=== PATIENT | female | born 1970 | race Caucasian/White ===

== ENCOUNTER 2023-03-05 18:46 | Emergency (ER) | payer OTHER, BC, SELFPAY ==
[2023-03-05 18:53] VITALS: BP 177/93; PULSE 68; RESP 20; TEMP 36.6; O2SAT 100
[2023-03-05 19:46] VITALS: BP 159/90; PULSE 81; RESP 14; TEMP 36.7; O2SAT 100
[2023-03-05 19:47] VITALS: O2SAT 100
[2023-03-05 20:52] VITALS: BP 135/82; PULSE 59; RESP 14; O2SAT 100
--- NOTE | 2023-03-05 21:35 | ED.RECABL ---
HPI - Recheck/Abnormal Lab/Rx General Chief Complaint: Recheck/Abnormal Lab/Rx Stated Complaint: HTN Time Seen by Provider: 03/05/23 19:59 Source: patient Mode of arrival: ambulatory Limitations: no limitations History of Present Illness HPI narrative: Patient is a 53-year-old female who presents to ED with report of elevated blood pressure. Patient reports she went to the dentist today for routine cleaning and they checked her blood pressure prior to the cleaning and noted to be elevated into the 150s systolic. They then checked it again a short time later and it was elevated to the 180s systolic. Patient then went home and checked her blood pressure several times at home, each time noting them to be elevated in the 160s to 170s systolic. Patient states she felt fine at the time of her blood pressures being checked in the dentist office, but did began feeling anxious and somewhat lightheaded at home with her pressures being continuously elevated. She then prompted here. She denies history of hypertension. She last saw her primary care doctor in July and her blood pressure was noted to be normal at that time. Denies any current dizziness or lightheadedness, headache, chest pain, difficulty breathing, vision changes, abdominal pain, cough, cold symptoms, recent illness. Related Data Allergies Allergy/AdvReac Type Severity Reaction Status Date / Time amoxicillin Allergy Mild Hives Verified 11/06/22 08:22 Penicillins Allergy Mild Hives Verified 11/06/22 08:22 Review of Systems Review of Systems: CONSTITUTIONAL: Denies fever, chills, or sweats. CARDIOVASCULAR: Denies chest pain. RESPIRATORY: Denies dyspnea. GASTROINTESTINAL: Denies abdominal pain, nausea, vomiting. NEUROLOGIC: See HPI. PSYCHIATRIC: See HPI. All systems reviewed & are unremarkable except as noted in HPI and below [facility] Past Medical History Medical History Hypothyroidism Family History Family History Mother Family history of Alzheimer's disease Social History Social History Smoking status: Never smoker Alcohol intake: current Lack of Transportation: No Lack of Food: Never True Current Housing: I Have Housing Concerned About Future Housing: No Difficulty Paying Gas/Electric Bills: No Difficulty Paying for Meds: No Currently Unemployed: No Education: Bachelor's Degree Difficulty w/ Childcare or Family Care: No Exam Narrative: GENERAL: Well appearing, well-nourished, non-toxic, in no acute distress. HEAD: Normocephalic, atraumatic. NECK: Supple. No adenopathy, no masses. RESPIRATORY: Airway patent, respirations nonlabored. Clear to auscultation bilaterally, no rales, rhonchi, wheezing. CARDIOVASCULAR: Regular rate and rhythm without murmurs, rubs, or gallops. Radial pulses 2+ and equal bilaterally. ABDOMINAL: Soft, nontender, nondistended, no hepatosplenomegaly. Normoactive BS. MUSCULOSKELETAL: Moves all extremities. Strength/ROM intact without gross deformities. No edema. No calf tenderness. SKIN: Warm, dry, normal color. No rashes. NEURO: A&O X3. Speech clear. Cranial nerves II-XII grossly intact. Steady gait. No ataxic movements. PSYCHIATRIC: Appropriate mood and affect. Normal interaction. Course Vital Signs Vital signs: Vital Signs Temperature 97.8 F 03/05/23 18:53 Pulse Rate 68 03/05/23 18:53 Respiratory Rate 20 03/05/23 18:53 Blood Pressure 177/93 H 03/05/23 18:53 Pulse Oximetry 100 03/05/23 18:53 Oxygen Delivery Room Air 03/05/23 18:53 Temperature 98.1 F 03/05/23 19:46 Pulse Rate 59 L 03/05/23 21:52 Respiratory Rate 16 03/05/23 21:52 Blood Pressure 119/81 03/05/23 21:52 Pulse Oximetry 99 03/05/23 21:52 Oxygen Delivery Room Air 03/05/23 19:47 MDM - Recheck/Abnormal Lab/Rx MDM
[2023-03-05 21:52] VITALS: BP 119/81; PULSE 59; RESP 16; O2SAT 99
== END 2023-03-05 21:53 | disposition home or self-care (01) ==
PROVIDERS: Emergency Provider Physician Assistant; PCP Internal Medicine
DX: R03.0 Elevated blood-pressure reading, without diagnosis of hypertension (principal); E03.9 Hypothyroidism, unspecified
CPT/HCPCS: 99281

== ENCOUNTER 2024-11-19 11:15 | Outpatient (CLI) | payer OTHER, SELFPAY ==
--- NOTE | ~2024-11-19 | US_ITS ---
Limited abdominal ultrasound CLINICAL HISTORY: Umbilical mass TECHNIQUE: Real-time targeted sonographic imaging performed of the umbilical area. FINDINGS: No solid or cystic lesion identified. No hernia identified. No sonographic abnormality seen in the region scanned. IMPRESSION: No abnormality seen sonographically the area of clinical concern at the umbilical region. Reviewed, dictated and finalized at [facility]. IMPRESSION: No abnormality seen sonographically the area of clinical concern at the umbilic al region.
== END 2024-11-19 11:16 | disposition home or self-care (01) ==
PROVIDERS: PCP Nurse Practitioner; Visit Provider Nurse Practitioner
DX: R19.09 Other intra-abdominal and pelvic swelling, mass and lump (principal)
CPT/HCPCS: 76705

== ENCOUNTER 2025-06-20 14:07 | Emergency (ER) | payer OTHER, SELFPAY ==
[2025-06-20 14:07] VITALS: BP 144/73; PULSE 75; RESP 16; TEMP 36.3; O2SAT 100
--- NOTE | 2025-06-20 14:10 | ED_ITS ---
HPI - Extremity Problem General Chief complaint: Dizziness Stated complaint: Rt hand shaky/numb Time Seen by Provider: 06/20/25 14:10 Source: patient Mode of arrival: ambulatory Limitations: no limitations History of Present Illness HPI Narrative: Mima is a 55 year old female patient presenting to the clinic today with c/o dizziness, right hand shaking, and numbness. She reports symptoms just started prior to arrival. Has not taken any medications for her symptoms. No injury to her right hand. No history of diabetes. History of anxiety, hypertension, high cholesterol, and hypothyroid. Has not had her thyroid levels checked in over 1 year. Denies headache or any visual changes. Related Data Allergies Allergy/AdvReac Type Severity Reaction Status Date / Time amoxicillin Allergy Mild Hives Verified 11/16/24 10:57 Penicillins Allergy Mild Hives Verified 11/16/24 10:57 Review of Systems 2 Review of Systems: Pertinent positives per HPI. Patient denies any fever, chills, rash, headache, visual changes, cough, runny nose, sore throat, shortness of breath, chest pain, palpitations, nausea, vomiting, diarrhea, constipation, abdominal pain, or any urinary issues. [facility] Past Medical History Medical History Hypothyroidism Family History Family History Mother Family history of Alzheimer's disease Hypertension Father Hypertension Sibling Hypertension Social History Social History Smoking status: Never smoker Alcohol intake: current Lack of Transportation: No Lack of Food: Never True Current Housing: I Have Housing Concerned About Future Housing: No Difficulty Paying Gas/Electric Bills: No Difficulty Paying for Meds: No Currently Unemployed: No Education: Bachelor's Degree Difficulty w/ Childcare or Family Care: No Comments At the time of my signature, I reviewed and agree with the nursing past medical, surgical, social, and family history. There is no relevant family history pertinent to the patient complaint. Exam Narrative: General: Well-developed, well nourished, in no apparent distress Head: Normocephalic, atraumatic Eyes: Pupils equally round and reactive to light bilaterally, EOM intact, sclera and conjunctive clear, no discharge, lids normal Ears: TMs intact and clear, ear canals clear, no drainage, grossly hearing normal. Nose: Nares patent, no discharge, no inflammation, no sinus tenderness. Mouth: Oropharynx without lesions or masses, good dentition, MMM. Tongue midline, even rise and fall of uvula Neck: Supple, trachea midline, no enlargement of anterior or posterior cervical nodes, no thyroid masses or goiter palpable. Cardio: Regular rate and rhythm, s1 and s2 normal, no murmur appreciated. Resp: Clear to auscultation bilaterally anteriorly and posteriorly, no rhonchi, rales, wheezing or rubs Musculoskeletal: No deformity, non-tender to palpation, grossly normal range of motion, muscle strength strong and equal, peripheral pulse strong, no edema, no cyanosis, normal gait and station Neuro: Alert and oriented x4 with normal speech, no focal deficits, cranial nerves I through XII intact, muscle strength 5 out of 5, numbness to the right hand, negative Romberg test Course Course Emergency Course: Portions of this record may have been created with voice recognition software. Level of Care: Express Care Visit Vital Signs Vital signs: Vital signs reviewed Transfer Transfered to: [place] Transportation: Other (private car) Transfer rationale: Dizziness, right hand numbness/shaking- higher level of care. Accepting physician: Dr. Crisostomo Transfer comments: private car MDM - Extremity (Nontraumatic) MDM Narrative Medical decision making narrative: At the time of visit patient is resting comfortably on the exam table. Patient appears to be nontoxic. C/o right hand shaking/numbness. She reports symptoms just started prior to arrival. Has not taken any medications for her symptoms. No injury to her right hand. No history of diabetes. History of anxiety, hypertension, high cholesterol, and hypothyroid. Bedside glucose was ordered. On exam patient has normal neuro exam other than right hand numbness, both hands are equal in temperature, practical nurse clinical coordinator strength were equal bilaterally, negative Romberg testing, bilateral TMs intact and clear, no nasal drainage, nares are patent, oral pharynx normal, even rise and fall the uvula-midline tongue, no facial droop, heart rates regular rate and rhythm, lung sounds are clear. Alert and oriented x4. Vital signs are stable. Labs: Blood sugar was 102. Plan: Patient reporting dizziness, right hand shaking, and numbness. Neuro exam normal other than numbness in the right hand, Recommend transfer to the ER for further evaluation. Patient agrees to transfer would like to go to [facility]. Contacted Dr. Crisostomo and report was given for continuity of care. Dr. Crisostomo accepts patient for transfer. Patient to go directly to the emergency room- may drive. Differential Diagnosis Differential diagnosis: Likely deep venous thrombosis of upper extremity and other (Carpal tunnel syndrome, hypoglycemia, nerve injury/inflammation, cervical radiculopathy, anxiety) Discharge Plan Discharge Clinical Impression: Paresthesias in right hand, Dizziness, Tremor of right hand Patient Disposition: Acute Care Hospital Condition: Stable Patient Language: Korean Prescriptions: No Action alprazolam [Xanax] 0.25 mg tablet 0.25 mg PO DAILY PRN (Reason: anxiety) Qty: 10 0RF lisinopril 5 mg tablet 5 mg PO DAILY Qty: 90 1RF atorvastatin 10 mg tablet 10 mg PO QHS Qty: 90 1RF levothyroxine 50 mcg tablet 50 mcg PO DAILY Qty: 90 0RF Rx Instructions: LAST REFILL UNTIL SEEN Follow-up/Referrals: Gregory Phillips DO [Primary Care Provider, Internal Medicine] Time of Disposition: 14:40 Quality NIHSS Nursing Documentation ED NIHSS nursing documentation: reviewed/agree
== END 2025-06-20 14:35 | disposition short-term general hospital (02) ==
PROVIDERS: Emergency Provider Nurse Practitioner Family; PCP Internal Medicine
DX: R20.2 Paresthesia of skin (principal); R42 Dizziness and giddiness; R25.1 Tremor, unspecified; E03.9 Hypothyroidism, unspecified
CPT/HCPCS: 82948; 99213; G0463

== ENCOUNTER 2025-06-20 14:52 | Observation (INO) | payer OTHER, SELFPAY ==
[2025-06-20] VITALS (10 sets, daily range): BP systolic 116–139; BP diastolic 71–88; PULSE 60–82; RESP 12–20; TEMP 36.2–36.9; O2SAT 98–100; BMI 20.9
--- NOTE | ~2025-06-20 | CT_ITS ---
EXAMINATION: CTA brain carotid, 06/20/2025 15:00 HOOF TRIMMER HISTORY: right sided numness COMPARISON: No comparisons available. TECHNIQUE: CTA scan with 3D Reconstructions of the brain and neck was performed with contrast Isovue 300, 92cc injected IV. One or more of the following dose reduction techniques were used: automated exposure control, adjustment of the mA and/or kV according to patient size, use of iterative reconstruction technique. Unless otherwise stated, incidental findings do not require dedicated follow up imaging FINDINGS: CTA brain: Visualized brain parenchyma, soft tissues and osseous structures are unremarkable. The posterior cerebral arteries are fed by the knik of [place] appear unremarkable. Basilar artery unremarkable. Right petrous and cavernous ICA segments unremarkable. Right M1, M2 segments and branches unremarkable. Right A1 is diminutive. Right A2 segment unremarkable Left petrous and cavernous ICA segments unremarkable. Left M1, M2 segments and branches unremarkable. Left A1 and A2 segments unremarkable. CTA NECK: The soft tissues are unremarkable. There is no thickening of the prevertebral space or asymmetry of the airway. The parotid and submandibular glands unremarkable. No gross thyroid nodules. No jugulodigastric lymphadenopathy. The lung apices demonstrate chronic changes. There are no sclerotic or lytic lesions identified. No significant sinusitis. The cervical segments of the vertebral arteries appear unremarkable. The right vertebral artery is dominant. Right CCA unremarkable. Right ICA unremarkable Left CCA unremarkable. Left ICA unremarkable. IMPRESSION: No critical stenosis, aneurysm or occlusion identified Reviewed, dictated and finalized at location P. TRIMMER
--- NOTE | ~2025-06-20 | CT_ITS ---
EXAMINATION: CT brain wo walter, 06/20/2025 14:50 FLOOR FINISHER HELPER HISTORY: right side numness COMPARISON: No comparisons available. Technique: Axial images obtained of the brain without contrast. One or more of the following dose reduction techniques were used: automated exposure control, adjustment of the mA and/or kV according to patient size, use of iterative reconstruction technique. Findings: No acute infarct or parenchymal hemorrhage. No abnormal mass or mass effect. No midline shift. No extra-axial fluid collections. No hydrocephalus. Mastoid air cells unremarkable. Sinuses and orbits unremarkable. No acute fracture. No significant facial or scalp soft tissue swelling evident. No radiopaque foreign body is seen. Impression: 1.No acute intracranial abnormality. Reviewed, dictated and finalized at location P. R FINISHER HELPER Impression: 1.No acute intracranial abnormality.
--- NOTE | ~2025-06-20 | MR_ITS ---
EXAM/PROCEDURE: MR brain/brain stem wo/w con HISTORY: CVA/ TIA workup COMPARISON: June [id number] TECHNIQUE: Pre and postcontrast enhanced multiplanar MRI of the brain Contrast: 12 mL MultiHance FINDINGS: No restricted diffusion or acute ischemic event. No mass mass effect or hemorrhage. Mild chronic microvascular ischemic appearing white matter changes. No abnormal enhancing lesions or post enhancement pathology noncontrast sequences. Periorbital paranasal calvarial structures unremarkable. Basilar flow voids patent at the skull base. Hippocampal regions appear symmetric. IMPRESSION: No acute findings. Chronic microvascular ischemic appearing white matter changes. No lesions or masses seen. Reviewed, dictated and finalized at location A. OMIC PATHOLOGIST IMPRESSION: No acute findings. Chronic microvascular ischemic appearing white matter change s. No lesions or masses seen.
--- OUTSIDE RECORDS SUMMARY | 2025-06-20 14:55 | XMS_ITS | Clinical Summary ---
Author Organization [facility] Address [address] [place] [address] Phone Care Team Providers Care Provisioning Analyst Name Role Phone Gregory Phillips DO Primary Care Provider Allergies Active Allergy Reactions Criticality Noted Date Comments Amoxicillin Hives High 01/14/2020 Medications levothyroxine 50 mcg tablet Take 50 mcg by mouth daily transfer worker. Active Active Problems No known active problems Encounters Date Type Department Care Team Description 06/02/2025 External Device Data [facility] ABSTRACTION Provider, Abstract 06/02/2025 External Device Data [facility] ABSTRACTION Provider, Abstract from Last 3 Months Family History Medical History Relation Name Comments Heart Disease Brother 1 Heart Disease Brother 2 Reece High Cholesterol Father Costa Breast Cancer Maternal Aunt Heart Disease Maternal Grandfather Elvin Ovarian Cancer Maternal Grandmother Grandmother High Cholesterol Mother Mother Hypertension Mother Mother Diabetes Paternal Grandfather Elvin Relation Name Status Comments Brother 1 Brother 2 Reece Alive Father Costa Alive Maternal Aunt Maternal Grandfather Elvin Maternal Grandmother Grandmother Alive Mother Mother Alive Paternal Grandfather Elvin Social History Tobacco Use Types Packs/Day Years Used Date Smoking Tobacco: Never Smokeless Tobacco: Never Tobacco Cessation:Counseling Given: Not Answered Alcohol Use Standard Drinks/Week Comments Yes 4 (1 standard drink = 0.6 oz pur e alcohol) socially Comments No Sex and Gender Information Value Date Recorded Sex Assigned at Not on file Legal 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 [address] [place] [address] Josh Torres MD [address] [facility] [address] [place] [address] Health Maintenance Due Date Last Done Comments DTAP/TDAP/TD VACCINES (1 - Tdap) 02/09/1987 HEPATITIS B VACCINES (1 of 3 - 19+ 3-dose series) 02/09/1987 COLORECTAL SCREENING 02/09/2013 Colorectal Cancer Screening 02/09/2013 FIT-DNA Q 3 years 02/09/2013 FIT/FOBT Q 1 year 02/09/2013 Flex Sig/CT Colonography Q 5 years 02/09/2013 ZOSTER VACCINE (1 of 2) 02/09/2018 INFLUENZA VACCINE (#1) 2025 BREAST CANCER SCREENING 03/04/2026 03/04/20 25, 01/31/2023, 01/15/2022, Additional history exists PAP SMEAR 03/02/2028 03/02/2025, 07, 01/14/2020 CERVICAL CANCER SCREENING 03/02/2030 HPV/Cotest (21-29) 03/02/2030 03/02/2025, 0 02/21/2021, 01/14/2020 HPV/Cotest (30-65) 03/02/2030 03/02/2025, 0 02/21/2021, 01/14/2020 Procedures Procedure Name Priority Date/Time Associated Diagnosis Comments MAMMO 3D PAIGE SCREEN BILAT W OR WO CAD Routine 03/04/2025 3:27 PM CDT Breast cancer screening by mammogram CERV/VAG CYTO SCREEN PAP RLFX HPV Routine 03/02/2025 10:29 AM CDT Screening for cervical cancer from Last 3 Months or Most Recently Relevant to Health Maintenance Results * MAMMO 3D PAIGE SCREEN BILAT W OR WO CAD (03/04/2025 3:27 PM CDT) Anatomical Region Laterality Modality Breast Bilateral Mammography 03/04/2025 3:27 PM CDT Addenda Addendum by Elvin Doherty MD on 03/11/2025 7:06 AM CDT Comparison is made to outside studies from 2022, 2021 and 2020.. No new suspicious mass, microcalcifications or architectural distortion in either breast. BI-RADS 1: Negative Routine mammographic follow-up Impressions 03/04/2025 4:05 PM CDT IMPRESSION: [facility] Radiology will request the patient's previous outside studies in order to assess for stability. An addendum will be provided after reviewing the outside exams. DICTATION LOCATION: [facility] Narrative 03/04/2025 4:05 PM CDT BILATERAL FULL-FIELD DIGITAL SCREENING MAMMOGRAM WITH CAD WITH TOMOGRAPHY DATE: 03/04/2025 3:27 PM HISTORY: Annual screening. TECHNIQUE: Low-dose full-field digital breast tomosynthesis examination was performed with 2D and 3D acquisitions. Examination is read in conjunction with computer aided detection. COMPARISON: None. BREAST COMPOSITION: The breasts are heterogeneously dense, which may obscure small masses. FINDINGS: Previous exams are currently unavailable. The patient's outside studies will be requested in order to assess for stability. OVERALL FINAL ASSESSMENT: BI-RADS CATEGORY 0: Incomplete, obtaining previous images not available at the time of reading. us Josh Torres MD MAMMO ORDERABLES Edite d Result - Final * CERV/VAG CYTO SCREEN PAP RLFX HPV (03/02/2025 10:29 AM CDT) CLINICAL INFORMATION Domonique Mcleod Comment:None given LAST MENSTRUAL PERIOD Domonique Mcleod Comment:NONE GIVEN PREV PAP: [facility]Hanane Mcleod Comment:NONE GIVEN PREV BX: [facility]S zaheer Harsha Comment:NONE GIVEN SOURCE Domonique Mcleod Comment:ENDOCERVIX ADEQUACY: Domonique One DiaryDuong Mcleod Comment:SATISFACTORY FOR SERGIO LUATION PAP INTERP Domonique YinDuong Mcleod Comment: Cytology Results: Negative for intraepithelial lesion or malignancy. Atrophic pattern; predominantly parabasal cells COMMENT (PAP TEST) Q uest AnnamariaDuong Mcleod Comment: This Pap test has been evaluated with the ThinPrep(R) Imaging System. SENIOR ASSOCIATE: Oli Mcleod Comment: MESHA BOWDEN(ASCP) CT Screening Location: [place] [address] Administration EM[place] [address] CLIA: [id number] Slide preparation performed at: [facility], [address] [place] [address], [address] CLIA: [id number] EXPLANATORY NOTE Que st Nimisha Mcleod Comment: EXPLANATORY NOTE: The Pap is a screening test for cervical cancer. It is not a diagnostic test and is subject to false negative and false positive results. It is most reliable when a satisfactory sample, regularly obtained, is submitted with relevant clinical findings and history, and when the Pap result is evaluated along with historic and current clinical information. Test Performed at: [facility] [place] [address] [address] EM[place] [id number] Kaye Hoskins Genital SWAB OF ENDOCERVIX / Unknown 03/02/2025 10:29 AM CDT 03/03/2025 7:06 PM CDT Josh Torres MD PATHOLOGY/CYTOLOGY ORD ERABLES Final Result [facility] [phone] [place] [address] Administration EM[place] [phone] from Last 3 Months or Most Recently Relevant to Health Maintenance Insurance [facility] [id number] Care Teams Provisioning Analyst Relationship Specialty Start Date End Date Gregory Phillips DO [address] [facility] [address] [place] [address] PCP - General Internal Medicine 01/12/20
--- OUTSIDE RECORDS SUMMARY | 2025-06-20 14:55 | XMS_ITS | Encounter Summary ---
Author Organization [facility] Address 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 Gender Identity Not on file Sexual Orientation Not on file documented as of this encounter Plan of Treatment Upcoming Encounters Date Type Department Care Team (Late Contact Info) Description 08/23/2025 9:00 AM INDUSTRIAL GREEN SYSTEMS DESIGNER Appointment [facility] [address] [place] [address] Josh Torres MD [address] [address] documented as of this encounter Visit Diagnoses Diagnosis Abnormality in heart rate/rhythm, delivered, with or without mention of antepartum condition- Primary documented in this encounter Care Teams Trust Vault Custodian Relationship Specialty Start Date End Date Gregory Phillips DO [address] [facility] [address] [place] [address] PCP - General Internal Medicine 01/12/20 documented as of this encounter
--- OUTSIDE RECORDS SUMMARY | 2025-06-20 14:55 | XMS_ITS | Patient Health Record ---
Author Organization [facility] ([address]) Address [address] [place] [address] Care Team Providers Care Junior Legal Secretary Name Role Phone Gregory Phillips Primary Care Provider Unavailab Mariia Santos Unavailable [phone] Allergies Allergen (clinical drug ingredient) Drug/Non Drug Allergy documented on EMR Reaction Allergy Type Onset Date Status SULFATE (uncoded) unknown reaction Allergy Active amoxicillin Amoxicillin rash Drug Allergy Act john Penicillin Rash Drug Allergy Active Reason For Referral No Information Medications Medication SIG (Take, Route, Frequency, Duration) Notes Start Date End Date Status Synthroid 50 MCG 1 tab(s) orally once a day; Duration: 30 day(s) Active SYNTHROID 50 mcg (0.05 mg) 1 tab(s) oral ly once a day; Duration: 30 day(s) Active Immunizations Vaccine Route Administration Date Status Comme nts Hepatitis A Unknown 07/13/1999 Administered Portal Info rmation NOC Tdap Unknown 04/22/2012 Administered Portal Infor mation Influenza Unknown 02/18/2019 Refused Social History Tobacco Use: Social History Observation Description Date Details (start date - stop date) Never Smoker NA - NA Smoking Smart Form: Question Answer Notes Are you a: never smoker Problems Problem Type SNOMED Code ICD Code Onset Dates Problem Status W/U Status Risk Notes Problem Chronic rhinitis (32176005) Chronic rhinitis (J31.0) Active confirmed Problem Allergy to penicillin (20240944) Allergy status to penicillin (Z88.0) Active confirmed Problem Allergy to sulfonamides (57736011) Allergy status to sulfonamides status (Z88.2) Active confirmed Plan Of Treatment No Information Insurance Providers Payer Name Payer Address Payer Phone Subscriber Number Group Number Insured Name Patient Relationship to Insured Coverage Start Date Coverage End Date [facility] [address] [place] [address] [id number] Chuck Morley Spouse - patient is the spouse of the insured Medical (General) History Medical History History ICD Code Allergy status to penicillin Z88.0 Hypothyroidism, unspecified E03.9 Surgical History Surgery Date(Month/Year) Broken nose 10/23/1996
--- OUTSIDE RECORDS SUMMARY | 2025-06-20 14:55 | XMS_ITS ---
Author Organization Unknown ENCOUNTERS Encounter Performer Location Date Diagnosis Diagnosis Status Pre Admit [place] [address] [place] [address] [phone] Emergency [facility] [address] [place] [address] [phone] [place] Pre Admit [place] [address] [place] [address] [phone] *Note: Encounters from your own facility or health system may be excluded. Allergies, Adverse Reactions, Alerts Allergen Type Severity Identification Date Penicillins drug allergy 2 20221106 amoxicillin drug allergy 2 20221106 Medications Name Date Quantity Days Supplied [facility] Number
--- NOTE | 2025-06-20 14:58 | ECG_ITS ---
Test Date: 2025-06-20 15:32:37 Measurements Intervals [place] Rate: 68 P: 90 IA: 164 QRS: 67 QRSD: 86 T: 73 QT: 402 QTc: 429 Interpretive Statements SINUS RHYTHM No previous ECG available for comparison Electronically Signed On 06-21-2025 00:09:47 SENIOR UNDERWRITING ASSISTANT by Dewayne Álvarez D.O
[2025-06-20 15:20] LABS: Estimated Glomerular Filt Rate > 60
[2025-06-20 15:46] LABS: Hematocrit 41.2 % (37.0-47.0); Hemoglobin 13.8 g/dL (12.0-15.0); Immature Granulocyte Percent A 0.4 % (0-0.5); Lymphocytes Absolute Auto 1.38 K/mm3 (0.9-3.2); Mean Corpuscular HGB Conc 33.5 g/dl (32-36); Mean Corpuscular Hemoglobin 31.4 pg (26-34); Mean Corpuscular Volume 93.8 fl (80-100); Nucleated Red Blood Cells Absolute Auto 0.000 K/mm3 (0.0-0.012); Nucleated Red Blood Cells Perc 0.0 % (0.0-0.2); Platelet Count Result 244 k/mm3 (150-375); Red Blood Count 4.39 M/mm3 (4.2-5.4); White Blood Count 4.8 K/mm3 (4.5-10.0)
[2025-06-20 16:03] LABS: Alanine Aminotransferase 31 U/L (6-35); Albumin Level 4.6 g/dL (3.5-5.1); Alkaline Phosphatase 80 U/L (38-126); Anion Gap 9 mmol/L (4-12); Aspartate Amino Transferase 37 U/L (14-36); Bilirubin,Total 0.6 mg/dL (0.2-1.3); Blood Urea Nitrogen 23 mg/dL (7-17); Calcium 9.1 mg/dL (8.4-10.2); Carbon Dioxide 25 mmol/L (22-30); Chloride 102 mmol/L (98-107); Estimated CRCL calculation 74 ml/min; Estimated Glomerular Filt Rate > 60; Glucose 119 mg/dL (65-110); Potassium 3.6 mmol/L (3.4-5.0); Sodium 136 mmol/L (137-145); Total Protein 7.5 g/dL (6.3-8.2)
[2025-06-20 16:13] LABS: Troponin I < 0.012 ng/mL (0.000-0.034)
--- NOTE | 2025-06-20 16:17 | ED.NEUROSD ---
HPI - Neuro Symptoms/Deficit General Chief Complaint: Neuro Symptoms/Deficit Stated Complaint: right hand numb and shaky x 1 hr Time Seen by Provider: 06/20/25 14:57 Source: patient Mode of arrival: ambulatory Limitations: no limitations History of Present Illness HPI Narrative: 55 yr old with a history of hyperlipidemia, anxiety disorder here the right-sided numbness about 1 hour ago associated with shakes on the right sign. Denies any headache or chest pain or shortness of breath. Patient since this is not anxiety Onset (ago): hour(s) (1) Associated symptoms: denies other symptoms Related Data Allergies Allergy/AdvReac Type Severity Reaction Status Date / Time amoxicillin Allergy Mild Hives Verified 06/20/25 14:56 Penicillins Allergy Mild Hives Verified 06/20/25 14:56 Sulfa (Sulfonamide Allergy Unknown Unknown Verified 06/20/25 14:56 Antibiotics) Review of Systems Review of Systems: All systems reviewed & are unremarkable except as noted in HPI and below Constitutional: Constitutional: Reports no additional constitutional complaints Eyes: Eyes: Reports no additional eye complaints ENT: Reports system reviewed and no additional complaints, except as documented Cardiovascular: Cardiovascular: Reports no additional cardiovascular complaints Respiratory: Respiratory: Reports no additional respiratory complaints Gastrointestinal: Gastrointestinal: Reports no additional gastrointestinal complaints Genitourinary: Genitourinary: Reports no additional female genitourinary complaints Musculoskeletal: Musculoskeletal: Reports no additional musculoskeletal complaints Neurologic: Reports as per HPI PMFSH Past Medical History Medical History Hypothyroidism Family History Family History Mother Family history of Alzheimer's disease Hypertension Father Hypertension Sibling Hypertension Social History Social History Smoking status: Never smoker Alcohol intake: current Lack of Transportation: No Lack of Food: Never True Current Housing: I Have Housing Concerned About Future Housing: No Difficulty Paying Gas/Electric Bills: No Difficulty Paying for Meds: No Currently Unemployed: No Education: Bachelor's Degree Difficulty w/ Childcare or Family Care: No Exam Narrative: GENERAL: Well-appearing, well-nourished, and in no acute distress. HEAD: Normocephalic, atraumatic. EYES: PERRLA and EOMI. ENT: Nares clear, no rhinorrhea or epistaxis. Mucous membranes moist. NECK: Supple. CHEST: Clear to auscultation. No respiratory distress. HEART: Regular rate and rhythm. No murmur heard. Normal peripheral pulses. ABDOMEN: Soft, nontender, nondistended, normal active bowel sounds. EXTREMITIES: Normal range of motion. No edema. SKIN: Warm, dry, no rash. NEURO: No focal deficits. Alert and oriented x3. she a tremor on the right side. PSYCH: Normal mood and affect. Course Course Emergency Course: Pt is feeling much better , her symptoms now resolved , informed her about the lab and CT findings. Discussed with Dr. Diaz recommends admit and EEG in the morning. Vital Signs Vital signs: Vital Signs Pulse Rate 75 06/20/25 14:54 Respiratory Rate 12 06/20/25 14:54 Blood Pressure 138/75 06/20/25 14:54 Pulse Oximetry 100 06/20/25 14:54 Pulse Rate 73 06/20/25 15:53 Respiratory Rate 20 06/20/25 15:53 Blood Pressure 116/74 06/20/25 15:53 Pulse Oximetry 100 06/20/25 15:53 Oxygen Delivery Room Air 06/20/25 15:16 MDM - Neuro Symptoms/Deficit Differential Diagnosis Differential diagnosis: Likely transient cerebral ischemia and other (anxiety) Medical Records Attestation: I reviewed the patient's medical records. Lab Data Attestation: I reviewed the patient's lab results. 06/20/25 15:41 06/20/25 16:08 Labs: Lab Results 06/20/25 06/20/25 06/20/25 Range/Units 14:56 15:41 16:08 WBC 4.8 (4.5-10.0) K/mm3 RBC 4.39 (4.2-5.4) M/mm3 Hgb 13.8 (12.0-15.0) g/dL Hct 41.2 (37.0-47.0) % MCV 93.8 (80-100) fl MCH 31.4 (26-34) pg MCHC 33.5 (32-36) g/dl RDW 11.7 (11.5-14.5) % Plt Count 244 (150-375) k/mm3 MPV 9.6 (7.4-10.4) fl Immature Gran % (Auto) 0.4 (0-0.5) % Neut % (Auto) 61.9 (45.5-73.1) % Lymph % (Auto) 28.6 (18.3-44.2) % [place] % (Auto) 7.3 (2.6-8.5) % Eos % (Auto) 1.2 (0-4.4) % Baso % (Auto) 0.6 (0.2-1.2) % Lymph # (Auto) 1.38 (0.9-3.2) K/mm3 [place] # (Auto) 0.4 (0.1-0.6) K/mm3 Eos # (Auto) 0.1 (0-0.3) K/mm3 Baso # (Auto) 0.0 (0.0-0.1) K/mm3 Abs Immat Gran (auto) 0.02 (0.00-0.031) K/mm3 Absolute Neuts (auto) 3.0 (1.3-6.7) K/mm3 Absolute Nucleated RBC 0.000 (0.0-0.012) K/mm3 Nucleated RBC % 0.0 (0.0-0.2) % Sodium 136 L (137-145) mmol/L Potassium 3.6 (3.4-5.0) mmol/L Chloride 102 (98-107) mmol/L Carbon Dioxide 25 (22-30) mmol/L Anion Gap 9 (4-12) mmol/L BUN 23 H (7-17) mg/dL Creatinine 0.69 L 0.80 (0.7-1.0) mg/dL Estim Creat Clear Calc 74 Not Reportable ml/min Estimated GFR > 60 > 60 (59 - ) Glucose 119 H (65-110) mg/dL POC Capillary Glucose 109 H (65-105) mg/dl Calcium 9.1 (8.4-10.2) mg/dL Total Bilirubin 0.6 (0.2-1.3) mg/dL AST 37 H (14-36) U/L ALT 31 (6-35) U/L Alkaline Phosphatase 80 (38-126) U/L Troponin I < 0.012 (0.000-0.034) ng/mL Total Protein 7.5 (6.3-8.2) g/dL Albumin 4.6 (3.5-5.1) g/dL Imaging Data Radiologist's impression: ITS Impressions Head CT 06/20/25 15:03 Impression: 1.No acute intracranial abnormality. Head/Neck CTA 06/20/25 15:19 IMPRESSION: No critical stenosis, aneurysm or occlusion identified ECG Data EKG #1: ECG completion date: 06/20/25 ECG completion time: 15:32 EKG Interpretation: normal rate (68), sinus rhythm, no ectopy, no ST changes, normal QRS, normal QT and NL axis Discharge Plan Discharge Clinical Impression: TIA (transient ischemic attack) Patient Disposition: Still a Patient Condition: Stable Patient Language: Togolese Prescriptions: No Action alprazolam [Xanax] 0.25 mg tablet 0.25 mg PO DAILY PRN (Reason: anxiety) Qty: 10 0RF lisinopril 5 mg tablet 5 mg PO DAILY Qty: 90 1RF atorvastatin 10 mg tablet 10 mg PO QHS Qty: 90 1RF levothyroxine 50 mcg tablet 50 mcg PO DAILY Qty: 90 0RF Rx Instructions: LAST REFILL UNTIL SEEN Follow-up/Referrals: Gregory Phillips DO [Primary Care Provider, Internal Medicine] Time of Disposition: 16:17 Quality Stroke Date of last known normal: 06/20/25 Time of last known normal: 14:00 Stroke Scale Stroke Scale 1: Stroke scale date:: 06/20/25 Stroke scale time:: 15:16 1a Level of consciousness: alert-0 1b Level of consciousness questions: answers both correctly-0 1c Level of consciousness commands: obeys both correctly-0 2 Best gaze: normal-0 3 Visual: no visual loss-0 4 Facial palsy: normal-0 5a Motor: left arm: no drift-0 5b Motor: right arm: no drift-0 6a Motor: left leg: no drift-0 6b Motor: right leg: no drift-0 7 Limb ataxia: absent-0 8 Sensory: normal-0 9 Best language: no aphasia-0 10 Dysarthria: normal-0 11 Extinction and inattention: no abnormality-0 Level:: 0
[2025-06-20] MEDS: LORazepam (*CRX) 1 MG TABLET PO (16:38)
[2025-06-20 17:15] LABS: Anion Gap 7 mmol/L (4-12); Blood Urea Nitrogen 23 mg/dL (7-17); Calcium 9.1 mg/dL (8.4-10.2); Carbon Dioxide 25 mmol/L (22-30); Chloride 101 mmol/L (98-107); Estimated CRCL calculation 77 ml/min; Estimated Glomerular Filt Rate > 60; Glucose 103 mg/dL (65-110); Potassium 4.5 mmol/L (3.4-5.0); Sodium 133 mmol/L (137-145)
--- NOTE | 2025-06-20 17:56 | WPCEDHO ---
ED Hand Off Checklist All vitals saved:y IV Site documented:y All med administrations documented:y Triage Note Triage Note Pt presents to ED c/o tingling 06/20/25 15:16 and numbness and shakiness in R side of body and lightheadedness. Pt stated these sx started about an hour ago. Pt has no stroke or migraine hx. Pt denies n/v, fevers, or chills. Allergies amoxicillin Allergy (Mild, Verified 06/20/25 14:56) Hives Penicillins Allergy (Mild, Verified 06/20/25 14:56) Hives Sulfa (Sulfonamide Antibiotics) Allergy (Unknown, Verified 06/20/25 14:56) Unknown Family History (Last Reviewed 06/20/25 @ 16:26 by Michael Wellington MD) Mother Family history of Alzheimer's disease Hypertension Father Hypertension Sibling Hypertension Administered/Completed Medications Discontinued Medications Aspirin (Aspirin 325 Mg Tablet) 325 mg PO ONCE STA Stop: 06/20/25 16:16 Last Admin: 06/20/25 16:38 Dose: Not Given Documented By: MELONY Non-Admin Reason: Patient Refuses Lorazepam (Lorazepam (*Crx) 1 Mg Tablet) 1 mg PO ONCE STA Stop: 06/20/25 16:17 Last Admin: 06/20/25 16:38 Dose: 1 mg Documented By: MELONY Interventions/Assessments Cardiac Monitoring Start: 06/20/25 14:54 Freq: Status: Active Protocol: Document 06/20/25 15:29 KKR (Rec: 06/20/25 15:29 KKR [id number]) Boat Loader Helper Assessment Boat Loader Helper Yes Applied Pulse Rate (60-100) 75 EKG Rythm Sinus Rhythm IV / Saline Lock, Insert Start: 06/20/25 14:54 Freq: Status: Active Protocol: Document 06/20/25 15:00 TLB (Rec: 06/20/25 15:56 TLB [id number]) IV Assessment Peripheral Access Left Antecubital IV Catheter Access Initiated IV Insertion Date 06/20/25 IV Insertion Time 15:00 Catheter Gauge 18 IV Insertion 1 Attempts IV Site Assessment WNL IV Care and WNL,Access Locked Maintenance Last Vital Signs Temperature 98.5 F 06/20/25 17:45 Pulse Rate 67 06/20/25 17:45 Respiratory Rate 12 06/20/25 17:45 Pulse Oximetry 100 06/20/25 17:45 Blood Pressure 139/83 06/20/25 17:30 Blood Pressure Mean 97 06/20/25 17:30 Oxygen Delivery Room Air 06/20/25 15:16 Weight 60.6 kg 06/20/25 15:16 Last Result - Abnormals Only Sodium 133 mmol/L (137-145) L 06/20/25 16:57 BUN 23 mg/dL (7-17) H 06/20/25 16:57 Creatinine 0.66 mg/dL (0.7-1.0) L 06/20/25 16:57 Glucose 119 mg/dL (65-110) H 06/20/25 15:41 POC Capillary Glucose 109 mg/dl (65-105) H 06/20/25 14:56 AST 37 U/L (14-36) H 06/20/25 15:41 Most Recent Suicide Severity Rating Suicide Severity Rating NO RISK INDICATED 06/20/25 15:16
--- NOTE | 2025-06-20 18:28 | ADMGEN ---
This patient, Mima Morley, was admitted to 3 [facility] Surg Room 323-01. Patient/family oriented to hospital policies and general routines including ID bracelet, bed and alarms, visiting hours, pain management, procedures, bathroom and other care routines, personal items, smoking policy, room service/diet, and visiting hours. Information on how to activate the Rapid Response Team has been discussed. Patient/Family are encouraged to report perceived risks to care and to ask questions if they do not understand what they are told or what they should do.
--- NOTE | 2025-06-20 21:47 | PM.IMHP ---
H&P: HPI History of Present Illness Date/Time: 06/20/25 21:47 Chief Complaint: Right-sided numbness and tingling Narrative: 55-year-old female with a past medical history of HTN, hyperlipidemia, hypothyroidism presents to the ED on 06/20/2025 with complaints of numbness and tingling. Patient states she was working on her computer when she went to reach for her phone she noticed her right hand was tremoring and felt numb up her arm. She immediately headed to the ED and noticed in route her right leg was numb. Does endorse feeling lightheaded while this symptoms were present. Patient denies any headaches or vision changes. Her symptoms resolved spontaneously after an hour in the ED. no deficits. Initial vital signs 138/75, HR 75, respirations 12, afebrile and 100% on room air Labs significant for sodium 136, BUN 23, creatinine 0.69, glucose 119, AST 37. Troponin negative. ECG with normal sinus rhythm. Head CT with no acute intracranial abnormality. CTA head neck reveals no critical stenosis, aneurysm or occlusion Review of Systems Review of Systems: All systems reviewed & are unremarkable except as noted in HPI and below PMFSH Past Medical History Medical History Hypothyroidism Family History Family History Mother Family history of Alzheimer's disease Hypertension Father Hypertension Sibling Hypertension Social History Social History Smoking status: Never smoker Alcohol intake: current Substance use: never Lack of Transportation: No Lack of Food: Never True Current Housing: I Have Housing Concerned About Future Housing: No Difficulty Paying Gas/Electric Bills: No Difficulty Paying for Meds: No Currently Unemployed: No Education: Bachelor's Degree Difficulty w/ Childcare or Family Care: No Spiritual care concerns: No Meds Home Medications and Allergies Home Medications ?Medication ?Instructions ?Recorded ?Confirmed ?Type lisinopril 5 mg tablet 5 mg PO DAILY #90 tabs 02/04/25 06/20/25 Rx atorvastatin 10 mg tablet 10 mg PO QHS #90 tabs 05/24/25 06/20/25 Rx levothyroxine 50 mcg tablet 50 mcg PO DAILY #90 tabs 06/14/25 06/20/25 Rx Allergies Allergy/AdvReac Type Severity Reaction Status Date / Time amoxicillin Allergy Mild Hives Verified 06/20/25 18:39 Penicillins Allergy Mild Hives Verified 06/20/25 18:39 Sulfa (Sulfonamide Allergy Unknown Unknown Verified 06/20/25 18:39 Antibiotics) Vital Signs Vital Signs - 24 hr 06/20/25 14:54 06/20/25 15:16 06/20/25 15:29 Temperature Pulse Rate 75 82 75 Respiratory Rate 12 12 Blood Pressure 138/75 138/75 Pulse Oximetry 100 98 Oxygen Delivery Room Air 06/20/25 15:53 06/20/25 17:24 06/20/25 17:30 Temperature Pulse Rate 73 65 70 Respiratory Rate 20 17 18 Blood Pressure 116/74 137/88 139/83 Pulse Oximetry 100 100 100 Oxygen Delivery 06/20/25 17:45 06/20/25 18:40 06/20/25 18:55 Temperature 98.5 F 97.1 F L Pulse Rate 67 60 Respiratory Rate 12 14 Blood Pressure 121/71 Pulse Oximetry 100 100 Oxygen Delivery Room Air 06/20/25 20:00 Temperature 97.9 F Pulse Rate 68 Respiratory Rate 20 Blood Pressure 116/75 Pulse Oximetry 100 Oxygen Delivery Exam Narrative: GENERAL: non-toxic appearing, in no acute distress. HEAD: Normocephalic, atraumatic. EYES: PERRLA. Conjunctivae clear. NOSE: Normal no drainage. THROAT: Pharynx clear, no exudate. NECK: Trachea midline. No adenopathy, no masses. RESPIRATORY: Airway patent, respirations nonlabored. CTA. CARDIOVASCULAR: Regular rate and rhythm BREASTS: Defer GASTROINTESTINAL: Abdomen is soft and nontender. No organomegaly. Bowel sounds normal in all quadrants. GENITOURINARY: Defer MUSCULOSKELETAL: Moves all extremities. No gross deformities. No calf tenderness. Power Generation Technician strength equal, lower extremities equal. Sensation intact. Peripheral pulses intact. SKIN: Warm, dry, normal color. NEURO: A&O X4. Speech clear PSYCHIATRIC: Normal interaction H&P: Results Labs Labs: Short CBC 06/20/25 Range/Units 15:41 WBC 4.8 (4.5-10.0) K/mm3 Hgb 13.8 (12.0-15.0) g/dL Hct 41.2 (37.0-47.0) % Plt Count 244 (150-375) k/mm3 BMP 06/20/25 06/20/25 06/20/25 15:41 16:08 16:57 Sodium 136 L 133 L Potassium 3.6 4.5 Chloride 102 101 Carbon Dioxide 25 25 BUN 23 H 23 H Creatinine 0.69 L 0.80 0.66 L Glucose 119 H 103 Calcium 9.1 9.1 Cardiac Enzymes 06/20/25 Range/Units 15:41 Troponin I < 0.012 (0.000-0.034) ng/mL Liver Function 06/20/25 Range/Units 15:41 Total Bilirubin 0.6 (0.2-1.3) mg/dL AST 37 H (14-36) U/L ALT 31 (6-35) U/L Alkaline Phosphatase 80 (38-126) U/L Albumin 4.6 (3.5-5.1) g/dL Assessment and Plan Assessment and plan (1) Paresthesias in right hand: Code(s): R20.2 - Paresthesia of skin Status: Acute Assessment and Plan: Patient noticed sudden onset right hand tremoring and numbness that when further up her arm. Patient noticed her left leg was numb in route to the ED. she was able to move her extremities and denies any pain. Head CT with no acute intracranial abnormality. CTA head neck reveals no critical stenosis, aneurysm or occlusion. Patient denies any history of dysrhythmia. Symptoms spontaneously resolved while in the ED. - admission for observation and telemetry - neurology consulted - brain MRI w/wo ordered - echo w/Bubble ordered - EEG ordered - neuro checks Q4 - speech/swallow eval - PT/OT eval not needed - monitor daily labs, lipid panel, A1C - up ad edgard - continue atorvastatin - ASA 325 mg given in ED - consider 30 day event monitoring at discharge (2) Hypothyroidism: Qualifiers: Hypothyroidism type: acquired Qualified Code(s): E03.9 - Hypothyroidism, unspecified Code(s): E03.9 - Hypothyroidism, unspecified Status: Chronic Assessment and Plan: Continue levothyroxine -TSH with reflex in a.m. (3) Hyperlipidemia: Qualifiers: Hyperlipidemia type: mixed hyperlipidemia Qualified Code(s): E78.2 - Mixed hyperlipidemia Code(s): E78.5 - Hyperlipidemia, unspecified Status: Chronic Assessment and Plan: Continue atorvastatin -lipid panel in a.m. (4) Hypertension: Qualifiers: Hypertension type: primary hypertension Qualified Code(s): I10 - Essential (primary) hypertension Code(s): I10 - Essential (primary) hypertension Status: Chronic Assessment and Plan: BP stable. -continue lisinopril Plan Diet: Regular GI prophylaxis: NA DVT prophylaxis: Lovenox lines/drains: PIV Fluids: NA Code status: Full Quality VTE Prophylaxis VTE prophylaxis: pharmacologic ordered Hospitalist MIPS Advance Care Plan I have confirmed that the patient's Advanced Care Plan is present, code status is documented, or surrogate decision maker is listed in patient medical record.: Yes Medication Reconciliation I have utilized all available resources to obtain, update and review the patients current medications (includes all prescriptions, OTC, herbals, cannabis, and nutritional supplements).: Yes
[2025-06-21] VITALS (8 sets, daily range): BP systolic 108–119; BP diastolic 72–81; PULSE 55–113; RESP 16; TEMP 36.3–36.6; O2SAT 18–99
--- NOTE | 2025-06-21 | ECHO_ITS ---
Patient Info Name: Mima Morley Age: 55 years : 1970 Gender: Female Ht: 67 in Wt: 133 lbs BSA: 1.69 m2 HR: 62 bpm BP: 112 / 74 mmHg Technical Quality: Good Exam Date: 06/21/2025 9:50 AM Patient Status: I Admit Date: 06/20/2025 Exam Type: CA echo doppler w bubble study Complete two-dimensional, color flow and Doppler transthoracic echocardiogram is performed with agitated saline. Staff Referring Physician: Elly Hansen [employer]ocational Training Teacher: Nate Harrell III Attending Provider: Lc Knapp Contrast/Agitated Saline Contrast/Ag. Saline: Agitated Saline Amount: 16.00 ml Administered By: Nate Harrell III Existing IV Access: Yes IV Access Condition: patent with no signs of infiltration Summary 1. Left ventricular chamber dimension is normal. 2. Left ventricular systolic function is normal, estimated at 55-60. 3. The left ventricular diastolic function is normal. 4. E/e' 5 is not elevated. 5. There is trace mitral valve regurgitation. Left Ventricle E/e' 5 is not elevated. Left ventricular chamber dimension is normal. Left ventricular systolic function is normal, estimated at 55-60. The left ventricular diastolic function is normal. Right Ventricle Right ventricular chamber dimension is normal. Right ventricular systolic function is normal and with normal TAPSE 2.3 cm. Left Atria Left atrial chamber dimension is normal. Right Atria Right atrial chamber dimension is normal. Atrial Septum Intact interatrial septum visualized by 2D and agitated saline imaging. Agitated saline injection with and without valsalva maneuver opacified right side cardiac chambers without shunt to left side cardiac chambers. Aortic Valve The aortic valve is trileaflet. There is no aortic valve stenosis. There is no aortic valve regurgitation. Pulmonic Valve There is no pulmonic regurgitation. Mitral Valve There is no mitral valve stenosis. There is trace mitral valve regurgitation. Tricuspid Valve There is no tricuspid valve regurgitation. Pericardium/Pleural There is no pericardial effusion. Inferior Vena Cava Normal inferior vena cava with >50% collapse upon inspiration consistent with normal right atrial pressure, 5 mmHg. Aorta The aortic root size at the sinus of Valsalva is normal. Left Ventricular Outflow Tract Name Value Normal LVOT 2D LVOT Diameter 2.0 cm LVOT Doppler LVOT Peak Velocity 104 cm/s LVOT Peak Gradient 4 mmHg LVOT Mean Gradient 3 mmHg LVOT VTI 25 cm LVOT VTI/AV VTI Ratio 0.9 LVOT Stroke Volume 80 ml LVOT CO 5.0 l/min LVOT CI 3.0 l/min/m2 Pulmonic Valve Name Value Normal PV Doppler PV Peak Velocity 96 cm/s PV Peak Gradient 4 mmHg PV Mean Gradient 2 mmHg Mitral Valve Name Value Normal MV Doppler MV Peak Gradient 2 mmHg MV Mean Gradient 1 mmHg MV Area (Cont Eq VTI) 3.8 cm2 MV Diastolic Function MV E Peak Velocity 71 cm/s MV A Peak Velocity 42 cm/s MV E/A 1.7 MV Decel Time (PW) 229 ms MV Annular TDI MV E/e' (Septal) 6.1 MV E/e' (Lateral) 5.4 MV E/e' (Average) 5.8 Tricuspid Valve Name Value Normal Estimated PAP/RSVP RA Pressure 5 mmHg <=5 TV Annular TDI TV Lateral Dinorah s' Velocity 13.4 cm/s >=9.5 Aortic Valve Name Value Normal AV Doppler AV Peak Velocity 129 cm/s AV Peak Gradient 7 mmHg AV Mean Gradient 4 mmHg AV VTI 28 cm AV Area (Cont Eq VTI) 2.8 cm2 >=3.0 AV Area (Cont Eq Geoff) 2.6 cm2 AV DI (Geoff) 0.80 AV Regurgitation 2D LVOT Area 3.2 cm2 Ventricles Name Value Normal LV Dimensions 2D/MM IVS Diastolic Thickness (2D) 0.6 cm 0.6-1.0 LVID Diastole (2D) 4.8 cm 3.8-5.2 LVIW Diastolic Thickness (2D) 0.6 cm 0.6-0.9 LVID Systole (2D) 3.5 cm 2.2-3.5 LVOT Diameter 2.0 cm LV Mass (2D Cubed) 85.17 g 67.00-162.00 LV Mass Index (2D Cubed) 51 g/m2 43-95 Relative Wall Thickness (2D) 0.24 <=0.42 LV Fractional Shortening/Ejection Fraction 2D/MM LV Fractional Shortening (2D) 27 % 27-45 LV EF (2D Teichholz) 53 % LV Diastolic Volume (4C MOD) 63 ml LV EF (4C MOD) 59 % LV Diastolic Volume (2C MOD) 60 ml LV EF (2C MOD) 60 % LV Diastolic Volume (BP MOD) 66 ml 46-106 LV Diastolic Volume Index (BP MOD) 39 ml/m2 29-61 LV Systolic Volume (BP MOD) 26 ml 14-42 LV Systolic Volume Index (BP MOD) 15 ml/m2 8-24 LV EF (BP MOD) 60 % 54-74 LV Diastolic Length (4C) 6.7 cm LV Systolic Length (4C) 5.2 cm LV Stroke Volume (4C MOD) 38 ml Atria Name Value Normal LA Dimensions LA Volume (4C A-L) 45 ml LA Volume (BP A-L) 44 ml RA Dimensions RA Systolic Major [place] Length (4C) 4.8 cm 2.2-2.8 RA Area (4C) 13.6 cm2 <=18.0 Report Signatures
[2025-06-21] MEDS: LEVOTHYROXINE SODIUM 50 MCG TABLET PO (05:50)
[2025-06-21 05:53] LABS: Hematocrit 37.8 % (37.0-47.0); Hemoglobin 12.7 g/dL (12.0-15.0); Immature Granulocyte Percent A 0.2 % (0-0.5); Lymphocytes Absolute Auto 1.26 K/mm3 (0.9-3.2); Mean Corpuscular HGB Conc 33.6 g/dl (32-36); Mean Corpuscular Hemoglobin 32.1 pg (26-34); Mean Corpuscular Volume 95.5 fl (80-100); Nucleated Red Blood Cells Absolute Auto 0.000 K/mm3 (0.0-0.012); Nucleated Red Blood Cells Perc 0.0 % (0.0-0.2); Platelet Count Result 216 k/mm3 (150-375); Red Blood Count 3.96 M/mm3 (4.2-5.4); White Blood Count 4.2 K/mm3 (4.5-10.0)
[2025-06-21 06:00] LABS: Hemoglobin A1C 5.1 % (<5.7)
[2025-06-21 06:07] LABS: Anion Gap 5 mmol/L (4-12); Blood Urea Nitrogen 23 mg/dL (7-17); Calcium 8.9 mg/dL (8.4-10.2); Carbon Dioxide 25 mmol/L (22-30); Chloride 105 mmol/L (98-107); Cholesterol 149 mg/dL (0-200); Estimated CRCL calculation 69 ml/min; Estimated Glomerular Filt Rate > 60; Glucose 90 mg/dL (65-110); HDL Direct 65 mg/dL; Potassium 4.3 mmol/L (3.4-5.0); Sodium 135 mmol/L (137-145); Triglycerides 79 mg/dL (<150)
[2025-06-21 06:41] LABS: Thyroid Stimulating Hormone Reflex 1.510 uIU/mL (0.465-4.68)
--- NOTE | 2025-06-21 07:34 | P.PNIM_ITS ---
Progress Note: A&P Assessment and Plan (1) Paresthesias in right hand: Code(s): R20.2 - Paresthesia of skin Status: Inactive Assessment and Plan: Patient noticed sudden onset right hand tremoring and numbness further up her arm as well as her left leg going numb in route to the ED. Patient denies any history of dysrhythmia. Symptoms spontaneously resolved while in the ED. Head CT with no acute intracranial abnormality. CTA head neck reveals no critical stenosis, aneurysm or occlusion. Brain MRI w/wo ordered Echo w/Bubble ordered EEG ordered - Start high-intensity statin, atorvastatin 10 mg increased to 40 mg daily - Provide loading dose aspirin 325, transition to 81 mg aspirin daily - Started on plavix 75 mg daily, will remain on this for 3 weeks - Initiate stroke protocol, NIH Stroke Scale, neuro's q.4 hours - Monitor CBC, CMP, magnesium, troponin, and lipid profile - Monitor blood pressure, allow for permissive hypertension. - Telemetry monitoring - Monitor blood glucose - PT/OT eval and treat not needed as patient ambulating without assistance - consider 30 day event monitoring at discharge - Neurology consulted, appreciate assistance and recommendations (2) Hypothyroidism: Qualifiers: Hypothyroidism type: acquired Qualified Code(s): E03.9 - Hypothyroidism, unspecified Code(s): E03.9 - Hypothyroidism, unspecified Status: Chronic Assessment and Plan: Continue levothyroxine -TSH WNL (3) Hypertension: Qualifiers: Hypertension type: primary hypertension Qualified Code(s): I10 - Essential (primary) hypertension Code(s): I10 - Essential (primary) hypertension Status: Chronic Assessment and Plan: Chronic, continue lisinopril 5 mg daily - blood pressures reviewed and stable, continue to monitor Plan Diet: Regular GI prophylaxis: NA DVT prophylaxis: Lovenox lines/drains: PIV Fluids: NA Code status: Manager Furniture Spent With Patient Time with patient: 25 - 35 minutes Subjective Date/time seen: 06/21/25 07:34 Interval history: 55-year-old female with a past medical history of HTN, hyperlipidemia, hypot hyroidism presents to the ED on 06/20/2025 with complaints of numbness and tingling. Patient is pleasant sitting up on the side of bed. She states that all symptoms have resolved denying any tingling/numbness or weakness to the extremities. She has been ambulating the halls and denies any difficulties or dizziness/lightheadedness. She has no other complaints denying chest pain, palpitations, shortness of breath, nausea/vomiting and abdominal pain. Review of Systems Review of Systems: All systems reviewed & are unremarkable except as noted in HPI and below Exam Narrative: AF HR 62 RR 16 SpO2 99 BP 112/74 General: female in no acute respiratory distress who is nontoxic appearing, sitting up in and ambulating the halls HEENT: Normocephalic. Atraumatic. PERRLA. Extraocular movement intact. Sclera clear and anicteric. No facial asymmetry. Chest: Lungs are clear to auscultation bilaterally. No wheezes or crackles. CV: Heart was regular rate and rhythm. S1-S2. No murmurs, gallops, or rubs. Abd: Abdomen was soft. Nontender. Nondistended. Positive bowel sounds. Ext: No clubbing, cyanosis, or edema. DP pulses bilaterally. Neuro: Patient is alert and oriented x4. Strength is 5/5 in both upper and lower extremities. No upper extremity drift. Cranial nerves 2-12 are intact. Speech is clear. Objective Data Vital Signs Vital Signs: Vital Signs - 24 hr 06/20/25 14:54 06/20/25 15:16 06/20/25 15:29 Temperature Pulse Rate 75 82 75 Respiratory Rate 12 12 Blood Pressure 138/75 138/75 Pulse Oximetry 100 98 Oxygen Delivery Room Air 06/20/25 15:53 06/20/25 17:24 06/20/25 17:30 Temperature Pulse Rate 73 65 70 Respiratory Rate 20 17 18 Blood Pressure 116/74 137/88 139/83 Pulse Oximetry 100 100 100 Oxygen Delivery 06/20/25 17:45 06/20/25 18:40 06/20/25 18:55 Temperature 98.5 F 97.1 F L Pulse Rate 67 60 Respiratory Rate 12 14 Blood Pressure 121/71 Pulse Oximetry 100 100 Oxygen Delivery Room Air 06/20/25 20:00 06/20/25 20:00 06/20/25 20:00 Temperature 97.9 F Pulse Rate 68 69 Respiratory Rate 20 Blood Pressure 116/75 Pulse Oximetry 100 Oxygen Delivery Room Air 06/20/25 22:00 06/21/25 00:00 06/21/25 04:00 Temperature 97.9 F Pulse Rate 68 63 55 L Respiratory Rate 20 Blood Pressure 116/75 Pulse Oximetry 100 Oxygen Delivery 06/21/25 04:00 Temperature 97.9 F Pulse Rate 62 Respiratory Rate 16 Blood Pressure 112/74 Pulse Oximetry 99 Oxygen Delivery Intake/Output Intake/Output: Intake & Output 06/18/25 06/19/25 06/20/25 06/21/25 23:59 23:59 23:59 23:59 Intake Total 300 Balance 300 Meds/Results Medications: Active Medications Generic Name Dose Route Start Last Admin Trade Name Freq PRN Reason Stop Dose Admin Acetaminophen 650 mg 06/20/25 16:33 Acetaminophen 325 Mg Tablet PO Q4H PRN Mild Pain (1-3) or Fever Atorvastatin Calcium 10 mg 06/20/25 21:00 06/20/25 20:46 Atorvastatin 10 Mg Tablet PO Not Given QHS [facility] Enoxaparin Sodium 40 mg 06/21/25 09:00 Enoxaparin 40 Mg/0.4 Ml Syringe SUB-Q DAILY [facility] Levothyroxine Sodium 50 mcg 06/21/25 06:30 06/21/25 05:50 Levothyroxine Sodium 50 Mcg Tablet PO 50 mcg DAILY@0630 [facility] Administration Lisinopril 5 mg 06/21/25 09:00 Lisinopril 5 Mg Tablet PO DAILY [facility] Morphine Sulfate 2 mg 06/20/25 16:33 Morphine Sulfate (*Crx) 4 Mg/Ml Inj IV PUSH Q2H PRN Pain Rated 7-10 Perflutren Lipid Microsphere 0 ml 06/20/25 23:47 Perflutren Lipid Microspheres 1.5 Ml Vial Diluted To 10 Ml Total Volume IV PUSH 06/23/25 23:47 ONCE PRN adequate visualization Protocol Radiology Results: ITS Impressions Head CT 06/20/25 15:03 Impression: 1.No acute intracranial abnormality. Head/Neck CTA 06/20/25 15:19 IMPRESSION: No critical stenosis, aneurysm or occlusion identified Labs Labs: Laboratory Results - last 24 hr 06/20/25 06/20/25 06/20/25 14:56 15:41 16:08 WBC 4.8 RBC 4.39 Hgb 13.8 Hct 41.2 MCV 93.8 MCH 31.4 MCHC 33.5 RDW 11.7 Plt Count 244 MPV 9.6 Immature Gran % (Auto) 0.4 Neut % (Auto) 61.9 Lymph % (Auto) 28.6 [place] % (Auto) 7.3 Eos % (Auto) 1.2 Baso % (Auto) 0.6 Lymph # (Auto) 1.38 [place] # (Auto) 0.4 Eos # (Auto) 0.1 Baso # (Auto) 0.0 Abs Immat Gran (auto) 0.02 Absolute Neuts (auto) 3.0 Absolute Nucleated RBC 0.000 Nucleated RBC % 0.0 Sodium 136 L Potassium 3.6 Chloride 102 Carbon Dioxide 25 Anion Gap 9 BUN 23 H Creatinine 0.69 L 0.80 Estim Creat Clear Calc 74 Not Reportable Estimated GFR > 60 > 60 Glucose 119 H POC Capillary Glucose 109 H Hemoglobin A1c Calcium 9.1 Total Bilirubin 0.6 AST 37 H ALT 31 Alkaline Phosphatase 80 Troponin I < 0.012 Total Protein 7.5 Albumin 4.6 Triglycerides Cholesterol LDL Cholesterol Direct HDL Direct TSH (Reflex) 06/20/25 06/21/25 16:57 04:50 WBC 4.2 L RBC 3.96 L Hgb 12.7 Hct 37.8 MCV 95.5 MCH 32.1 MCHC 33.6 RDW 11.9 Plt Count 216 MPV 9.9 Immature Gran % (Auto) 0.2 Neut % (Auto) 56.4 Lymph % (Auto) 29.8 [place] % (Auto) 8.7 H Eos % (Auto) 4.0 Baso % (Auto) 0.9 Lymph # (Auto) 1.26 [place] # (Auto) 0.4 Eos # (Auto) 0.2 Baso # (Auto) 0.0 Abs Immat Gran (auto) 0.01 Absolute Neuts (auto) 2.4 Absolute Nucleated RBC 0.000 Nucleated RBC % 0.0 Sodium 133 L 135 L Potassium 4.5 4.3 Chloride 101 105 Carbon Dioxide 25 25 Anion Gap 7 5 BUN 23 H 23 H Creatinine 0.66 L 0.75 Estim Creat Clear Calc 77 69 Estimated GFR > 60 > 60 Glucose 103 90 POC Capillary Glucose Hemoglobin A1c 5.1 Calcium 9.1 8.9 Total Bilirubin AST ALT Alkaline Phosphatase Troponin I Total Protein Albumin Triglycerides 79 Cholesterol 149 LDL Cholesterol Direct 58 HDL Direct 65 TSH (Reflex) 1.510 Quality VTE Prophylaxis VTE prophylaxis: pharmacologic ordered
[2025-06-21] MEDS: ASPIRIN 81 MG ENTERIC TABLET PO (08:42)
[2025-06-21] MEDS: ENOXAPARIN 40 MG/0.4 ML SYRINGE SUB-Q (08:43)
--- NOTE | 2025-06-21 12:36 | WPDNEURCNPN ---
Assessment and Plan Assessment and plan (1) TIA (transient ischemic attack): Code(s): G45.9 - Transient cerebral ischemic attack, unspecified Status: Acute (2) Hyperlipidemia: Qualifiers: Hyperlipidemia type: mixed hyperlipidemia Qualified Code(s): E78.2 - Mixed hyperlipidemia Code(s): E78.5 - Hyperlipidemia, unspecified Status: Chronic (3) Hypertension: Qualifiers: Hypertension type: primary hypertension Qualified Code(s): I10 - Essential (primary) hypertension Code(s): I10 - Essential (primary) hypertension Status: Chronic Plan The patient undergoing investigation including MRI of the brain, EEG, echocardiogram. I spoke to the hospitalist. Noted the patient is now on Lipitor 40 mg a day which had antiplatelets. We discussed to keep her on aspirin and Plavix for at least 21 days and after that depending upon the findings on the testing further decisions can be made. A prolonged Holter monitor for 28 days could be a consideration in case above testing did not show any abnormality. I shall be glad to see her in my office for follow-up. Last LDL was 58 this morning. Consult date: 06/21/25 HPI: Mima Morley is a 55 year old right-handed white female presented to the hospital with sudden onset of numbness in the right arm and within a few minutes she also developed numbness in the right lower limb. Symptoms lasted for 2 hours or so. She had some jerking of the right hand. No prior history of similar spell. She does not suffer from chronic headache. Now she is able to get up and walk around has no symptoms at all. She is undergoing investigations for the above spell. There is no prior history of cardiac problems or stroke. She has had a CT scan of brain and CT angiogram head and neck done in the emergency room which did not show any significant abnormalities. Father has had dementia and Parkinson's disease. Patient does not smoke and drinks alcohol socially only. She works as a teacher for kindergarten. She is generally in good health. Review of Systems Review of Systems: All systems reviewed & are unremarkable except as noted in HPI and below PMFSH Past Medical History Medical History Hypothyroidism Family History Family History Mother Family history of Alzheimer's disease Hypertension Father Hypertension Sibling Hypertension Social History Social History Smoking status: Never smoker Alcohol intake: current Substance use: never Lack of Transportation: No Lack of Food: Never True Current Housing: I Have Housing Concerned About Future Housing: No Difficulty Paying Gas/Electric Bills: No Difficulty Paying for Meds: No Currently Unemployed: No Education: Bachelor's Degree Difficulty w/ Childcare or Family Care: No Spiritual care concerns: No Meds Home Medications and Allergies Home Medications ?Medication ?Instructions ?Recorded ?Confirmed ?Type lisinopril 5 mg tablet 5 mg PO DAILY #90 tabs 02/04/25 06/20/25 Rx atorvastatin 10 mg tablet 10 mg PO QHS #90 tabs 05/24/25 06/20/25 Rx levothyroxine 50 mcg tablet 50 mcg PO DAILY #90 tabs 06/14/25 06/20/25 Rx Allergies Allergy/AdvReac Type Severity Reaction Status Date / Time amoxicillin Allergy Mild Hives Verified 06/20/25 18:39 Penicillins Allergy Mild Hives Verified 06/20/25 18:39 Sulfa (Sulfonamide Allergy Unknown Unknown Verified 06/20/25 18:39 Antibiotics) Vital Signs Vital Signs - 24 hr 06/20/25 14:54 06/20/25 15:16 06/20/25 15:29 Temperature Pulse Rate 75 82 75 Respiratory Rate 12 12 Blood Pressure 138/75 138/75 Pulse Oximetry 100 98 Oxygen Delivery Room Air 06/20/25 15:53 06/20/25 17:24 06/20/25 17:30 Temperature Pulse Rate 73 65 70 Respiratory Rate 20 17 18 Blood Pressure 116/74 137/88 139/83 Pulse Oximetry 100 100 100 Oxygen Delivery 06/20/25 17:45 06/20/25 18:40 06/20/25 18:55 Temperature 98.5 F 97.1 F L Pulse Rate 67 60 Respiratory Rate 12 14 Blood Pressure 121/71 Pulse Oximetry 100 100 Oxygen Delivery Room Air 06/20/25 20:00 06/20/25 20:00 06/20/25 20:00 Temperature 97.9 F Pulse Rate 68 69 Respiratory Rate 20 Blood Pressure 116/75 Pulse Oximetry 100 Oxygen Delivery Room Air 06/20/25 22:00 06/21/25 00:00 06/21/25 04:00 Temperature 97.9 F Pulse Rate 68 63 55 L Respiratory Rate 20 Blood Pressure 116/75 Pulse Oximetry 100 Oxygen Delivery 06/21/25 04:00 06/21/25 08:00 06/21/25 08:42 Temperature 97.9 F Pulse Rate 62 68 Respiratory Rate 16 Blood Pressure 112/74 Pulse Oximetry 99 Oxygen Delivery Room Air Exam Const: General: cooperative, healthy appearing and comfortable HENMT: Head: atraumatic Mouth: Yes oropharynx normal Eyes: Alignment and Position: alignment normal and position normal EOM: EOMs intact bilaterally Neck: Neck: normal visual inspection and supple Resp: Effort & Inspection: normal respiratory effort Cardio: Heart sounds: S1 normal heart sound present and S2 normal heart sound present Skin: General skin exam: normal color Neuro: Cranial nerves: Yes CN's II-XII intact bilaterally, Yes facial symmetry and Yes Midline tongue present Cognition (Neuro): normal cognition Speech: normal speech Motor exam (neuro): 5/5 motor strength present throughout and Normal motor muscle tone present throughout Sensory Exam: normal sensation Coordination: [id number] test normal and Normal rapid alternating movements of the distal upper extremity present (Neuro) Extrem: General: normal to inspection Psych: Appearance: well kempt Mental Status: mental status grossly normal Speech and movement: Normal speech and movement present Affect: normal affect Thought process: Normal thought process present Thought content: Yes Normal thought content present Insight: Good insight present (Psych) Judgement: Good judgement present (Psych) Results Labs 06/21/25 04:50 06/21/25 04:50 Labs: Short CBC 06/20/25 06/21/25 Range/Units 15:41 04:50 WBC 4.8 4.2 L (4.5-10.0) K/mm3 Hgb 13.8 12.7 (12.0-15.0) g/dL Hct 41.2 37.8 (37.0-47.0) % Plt Count 244 216 (150-375) k/mm3 BMP 06/20/25 06/20/25 06/20/25 15:41 16:08 16:57 Sodium 136 L 133 L Potassium 3.6 4.5 Chloride 102 101 Carbon Dioxide 25 25 BUN 23 H 23 H Creatinine 0.69 L 0.80 0.66 L Glucose 119 H 103 Calcium 9.1 9.1 06/21/25 04:50 Sodium 135 L Potassium 4.3 Chloride 105 Carbon Dioxide 25 BUN 23 H Creatinine 0.75 Glucose 90 Calcium 8.9 Cardiac Enzymes 06/20/25 Range/Units 15:41 Troponin I < 0.012 (0.000-0.034) ng/mL Liver Function 06/20/25 Range/Units 15:41 Total Bilirubin 0.6 (0.2-1.3) mg/dL AST 37 H (14-36) U/L ALT 31 (6-35) U/L Alkaline Phosphatase 80 (38-126) U/L Albumin 4.6 (3.5-5.1) g/dL
--- NOTE | 2025-06-21 15:51 | PCNEURO ---
Contacted nurse about completing EEG tomorrow 06/22.
[2025-06-21] MEDS: ATORVASTATIN 40 MG TABLET PO (20:56)
[2025-06-22] VITALS: PULSE 54
[2025-06-22 04:00] VITALS: PULSE 56
[2025-06-22] MEDS: LEVOTHYROXINE SODIUM 50 MCG TABLET PO (05:33)
[2025-06-22 06:00] VITALS: BP 119/69; PULSE 62; RESP 14; TEMP 36.2; O2SAT 100
[2025-06-22 06:19] LABS: Hematocrit 41.2 % (37.0-47.0); Hemoglobin 13.7 g/dL (12.0-15.0); Mean Corpuscular HGB Conc 33.3 g/dl (32-36); Mean Corpuscular Hemoglobin 31.9 pg (26-34); Mean Corpuscular Volume 96.0 fl (80-100); Platelet Count Result 216 k/mm3 (150-375); Red Blood Count 4.29 M/mm3 (4.2-5.4); White Blood Count 3.7 K/mm3 (4.5-10.0)
[2025-06-22 06:42] LABS: Alanine Aminotransferase 28 U/L (6-35); Albumin Level 4.3 g/dL (3.5-5.1); Alkaline Phosphatase 72 U/L (38-126); Anion Gap 7 mmol/L (4-12); Aspartate Amino Transferase 31 U/L (14-36); Bilirubin,Total 0.6 mg/dL (0.2-1.3); Blood Urea Nitrogen 15 mg/dL (7-17); Calcium 9.3 mg/dL (8.4-10.2); Carbon Dioxide 26 mmol/L (22-30); Chloride 103 mmol/L (98-107); Estimated CRCL calculation 69 ml/min; Estimated Glomerular Filt Rate > 60; Glucose 90 mg/dL (65-110); Potassium 4.2 mmol/L (3.4-5.0); Sodium 136 mmol/L (137-145); Total Protein 7.1 g/dL (6.3-8.2)
[2025-06-22 08:00] VITALS: PULSE 61
[2025-06-22] MEDS: ASPIRIN 81 MG ENTERIC TABLET PO (08:34)
[2025-06-22] MEDS: CLOPIDOGREL BISULFATE 75 MG TABLET PO (08:34)
[2025-06-22] MEDS: ENOXAPARIN 40 MG/0.4 ML SYRINGE SUB-Q (08:38)
[2025-06-22 12:00] VITALS: PULSE 64
--- NOTE | 2025-06-22 12:42 | WPDNEUROLOGY ---
Neurology EEG Report General Information Date of Study: 06/22/25 TEST EEG DIAGNOSIS TIA versus seizure. CONDITION OF RECORDING awake, drowsy and asleep. EEG NUMBER [id number] CLINICAL HISTORY 55 years old female had an episode of right-sided numbness. Patient reported that her right hand started tremoring, her right upper extremity started going numb, and 20minutes later her right lower extremity went numb. In between the symptoms, she experienced lightheadedness, tunnel vision, and dizziness, but that went away quickly. Nothing has happened like this before. EEG DESCRIPTION Basic resting occipital frequency consists of well-organized low to medium voltage 9 to 11 hertz per 2nd alpha admixed with low-voltage 15 to 18 hertz per 2nd beta. Low-voltage alpha activity seen waxing and waning during drowsiness admixed with multiple movement artifacts and muscle artifacts. Photic stimulation produced normal drive. Hyperventilation not done. Bilateral symmetrical sleep activity seen during sleep with symmetrical sleep spindles as well. Non paroxysmal. Nonfocal. Nonlateralizing. IMPRESSION Normal record. Clinical correlation recommended. Normal EEG does not rule out the possibility of seizure.
--- NOTE | 2025-06-22 13:19 | P.DS_ITS ---
DS: Admitting Diagnosis Discharge Date 06/22/2025 Admitting Diagnosis paraesthesias in the right hand hypothyroidism htn DS: Discharge Diagnosis Discharge Diagnosis (1) Paresthesias in right hand: Code(s): R20.2 - Paresthesia of skin Status: Inactive (2) Hypothyroidism: Qualifiers: Hypothyroidism type: acquired Qualified Code(s): E03.9 - Hypothyroidism, unspecified Code(s): E03.9 - Hypothyroidism, unspecified Status: Chronic (3) Hypertension: Qualifiers: Hypertension type: primary hypertension Qualified Code(s): I10 - Essential (primary) hypertension Code(s): I10 - Essential (primary) hypertension Status: Chronic DS: Summary Hospital Course Reason for hospitalization: paraesthesias in the right hand hypothyroidism htn Hospital Course: 55-year-old female with a history of hypertension, hyperlipidemia, and hypothyroidism who presented to the emergency department with acute onset of right-sided numbness and tingling, initially involving the right hand and arm, and subsequently the right leg. She also reported transient right hand tremor, but denied headache, vision changes, or weakness. She denies any loss of bowel/bladder. No seizure history. Her symptoms resolved spontaneously within one hour, and she remained neurologically intact thereafter. Initial evaluation included a head CT and CTA of the head and neck, both of which were unremarkable for acute pathology, critical stenosis, aneurysm, or occlusion. Cardiac enzymes were negative and ECG showed normal sinus rhythm. Given the clinical suspicion for a transient ischemic attack, neurology was consulted and recommended additional evaluation including brain MRI, echocardiogram with bubble study, and EEG, all of which were ordered. MRI showed no acute findings. EEG showed no current seizure ataxia. Echo showed LVEF 55-60% with normal diastolic function. The patient was started on a high-intensity statin (atorvastatin increased from 10 mg to 40 mg daily), received a loading dose of aspirin 325 mg in the ED, and was transitioned to dual antiplatelet therapy with aspirin 81 mg daily and clopidogrel 75 mg daily for 21 days. The patient remained neurologically stable and asymptomatic throughout her hospitalization. She ambulated independently without difficulty and did not require PT/OT intervention. The patient?s hospital course was uncomplicated, with no recurrence of symptoms, and she remained hemodynamically stable. Plans were made for outpatient follow- up with neurology, and she was placed on a prolonged cardiac monitoring (28-day event monitor) at discharge. She has no complaints at time of discharge denying chest pain, palpitations, shortness of breath, nausea/vomiting and abdominal pain. Prior to discharge discussed patient with neurology Dr. Quesada who was in agreement that patient stable for discharge at this time. He states that due to patient having no loss of awareness during the acute event no seizure precautions are required at this time. She was discharged in stable condition. She is to follow up with her PCP in 1 week and neurology as scheduled. Status at Discharge Functional status at discharge: independent ambulation Time Spent with Patient Time attestation: Total time spent providing and/or coordinating discharge services: Time spent: Greater than 30 minutes Exam Narrative: AF HR 62 RR 14 Spo2 100 BP 104/73 General: female in no acute respiratory distress who is nontoxic appearing, sitting up in bed HEENT: Normocephalic. Atraumatic. Extraocular movement intact. Sclera clear and anicteric. No facial asymmetry. Chest: Lungs are clear to auscultation bilaterally. No wheezes or crackles. CV: Heart was regular rate and rhythm. Abd: Abdomen was soft. Nontender. Nondistended. Positive bowel sounds. Ext: No clubbing, cyanosis, or edema. DP pulses bilaterally. Neuro: Patient is alert and oriented x4. Strength is 5/5 in both upper and lower extremities. No upper extremity drift. Speech is clear. DS: Data Data Completed and Pending Completed studies during hospitalization: brain mri head/neck cta head ct Labs on day of discharge: Labs from last 24 hours 06/22/25 05:44 WBC 3.7 L RBC 4.29 Hgb 13.7 Hct 41.2 MCV 96.0 MCH 31.9 MCHC 33.3 RDW 12.0 Plt Count 216 MPV 9.8 Sodium 136 L Potassium 4.2 Chloride 103 Carbon Dioxide 26 Anion Gap 7 BUN 15 D Creatinine 0.74 Estim Creat Clear Calc 69 Estimated GFR > 60 Glucose 90 Calcium 9.3 Total Bilirubin 0.6 AST 31 ALT 28 Alkaline Phosphatase 72 Total Protein 7.1 Albumin 4.3 Discharge Plan Discharge Attending physician on discharge: Lc Knapp Consulting providers: Vasquez Diaz; Adriana Wells Discharging Clinician: Adriana Wells Anticipated Discharge Date/Time: 06/22/25 13:18 Patient Disposition: Home Activity: as tolerated Diet: as tolerated Discharge Instructions: You are being discharged after presumed TIA. 1. Medications ? Started on aspirin and Plavix, Plavix to be continued for 21 days. Attached is information on these medications. ? Atorvastatin dose increased from 10 mg to 40 mg daily ? Take all prescribed medications exactly as directed. ? Do not stop any medication without talking to your doctor. ? Keep a list of your medicines and bring it to all appointments. 2. Follow-Up Care ? Attend all scheduled follow-up visits with your primary care provider and specialists. 3. Preventing recurrence ? Control blood pressure, cholesterol, and blood sugar as advised by your healthcare team. ? Eat a healthy diet, such as the Mediterranean diet, with plenty of fruits and vegetables and less salt ? Exercise regularly as recommended by your therapist. Even light activity can help. ? Do not smoke. If you need help quitting, ask your provider. ? Limit alcohol and avoid recreational drugs. 4. Recognizing Stroke Warning Signs ? Call 911 immediately if you notice any of these symptoms: ? Sudden weakness or numbness in the face, arm, or leg (especially on one side) ? Sudden confusion, trouble speaking, or understanding ? Sudden trouble seeing in one or both eyes ? Sudden trouble walking, dizziness, loss of balance or coordination ? Sudden severe headache with no known cause Monitor blood pressures Take caution while standing, rising, or moving Change positions slowly taking a break between each position change If you standing feel dizzy sit back down and take a break Encouraged to continue with yearly vaccinations Return to the emergency department if he developed sudden shortness of breath, chest pain, nausea, vomiting, upset stomach or intractable diarrhea Return to the emergency department if you develop fever greater than 100.5 Follow-up with the primary care physician within 1-2 weeks Thank you for [facility] for your healthcare needs Patient Instructions: Aspirin (By mouth), Atorvastatin (By mouth), Clopidogrel (By mouth), Transient Ischemic Attack (DC), Holter Monitor (GEN) Patient Language: Nauruan Stand Alone Forms: General Discharge Information Follow-up/Referrals: Miles Quesada MD [Physician, Neurology] - 4 Weeks Gregory Phillips DO [Primary Care Provider, Internal Medicine] - 1 Week Discharge Medications: New atorvastatin 40 mg Tablet 40 mg PO QHS Qty: 30 0RF clopidogrel 75 mg Tablet 75 mg PO QAM 21 Days Qty: 21 0RF aspirin 81 mg Tablet,Delayed Release (Dr/Ec) 81 mg PO QAM Qty: 30 0RF Continued lisinopril 5 mg tablet 5 mg PO DAILY Qty: 90 1RF levothyroxine 50 mcg tablet 50 mcg PO DAILY Qty: 90 0RF Rx Instructions: LAST REFILL UNTIL SEEN Changed atorvastatin 10 mg tablet 40 mg PO QHS Qty: 90 1RF Other Ambulatory Orders: CA cardiac event monitor (Routine) Timeframe: 28 Days Location: Determined by Patient Ordered By: Adriana Wells Date of admission: 06/20/25 16:33 Primary Care Provider: Gregory Phillips Admitting Provider: Lc Knapp Attending physician on admission: Lc Knapp Condition: Stable Hospitalist MIPS Heart Failure (Exclusion) Patient has history of Heart Transplant or Left Ventricular Assistive Device?: No IF YES, STOP HERE Heart Failure (Qualifier) Patient has current or prior documentation of LVEF less than or equal to 40%, or mod/servere depressed LVSF?: No IF NO, STOP HERE
--- NOTE | 2025-06-22 13:41 | PC.NURSE ---
Pt has concerns about new medications being prescribed at ms. Education provided on why these medications are given after a supposed TIA. Pt encouraged to speak with her pcp if she continues to have concerns about her medicine.
[2025-06-22 14:00] VITALS: BP 104/73; PULSE 64; RESP 14; TEMP 36.2; O2SAT 100
== END 2025-06-22 14:40 | disposition home or self-care (01) ==
LOC: ANHED 16:30 → ANH3MEDSUR 17:49
PROVIDERS: Nurse Practitioner Adult Health; Student in an Organized Health Care Education/Training Program; Admitting Provider Internal Medicine; Emergency Provider Family Medicine; PCP Internal Medicine; Visit Provider Internal Medicine
DX: R20.2 Paresthesia of skin (principal); E78.5 Hyperlipidemia, unspecified; I10 Essential (primary) hypertension; E03.9 Hypothyroidism, unspecified; F41.9 Anxiety disorder, unspecified
CPT/HCPCS: 36415; 70450; 70496; 70498; 70553; 80048; 80053; 80061; 82948; 83036; 84443; 84484; 85025; 85027; 93005; 93306; 95816; 96372; 96375; 99285; A9270; A9577; G0378; J1650; Q9967

== ENCOUNTER 2025-07-06 15:07 | Outpatient (CLI) | payer OTHER, SELFPAY ==
--- OUTSIDE RECORDS SUMMARY | 2025-07-06 16:27 | XMS_ITS | Encounter Summary ---
Author Organization [facility] Address 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 Gender Identity Not on file Sexual Orientation Not on file documented as of this encounter Plan of Treatment Upcoming Encounters Date Type Department Care Team (Late Contact Info) Description 08/23/2025 9:00 AM PUBLICATION MANAGER Appointment [facility] [address] [place] [address] Josh Torres MD [address] [address] documented as of this encounter Visit Diagnoses Diagnosis Abnormality in heart rate/rhythm, delivered, with or without mention of antepartum condition- Primary documented in this encounter Care Teams Improvement Lead Relationship Specialty Start Date End Date Gregory Phillips DO [address] [facility] [address] [place] [address] PCP - General Internal Medicine 01/12/20 documented as of this encounter
--- OUTSIDE RECORDS SUMMARY | 2025-07-06 16:27 | XMS_ITS | Clinical Summary ---
Author Organization [facility] Address [address] [place] [address] Phone Care Team Providers Care Import Manager Name Role Phone Gregory Phillips DO Primary Care Provider Allergies Active Allergy Reactions Criticality Noted Date Comments Amoxicillin Hives High 01/14/2020 Medications levothyroxine 50 mcg tablet Take 50 mcg by mouth daily patternmaker hand. 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 [facility] [address] [place] [address] Health Maintenance Due Date Last [...] follow-up Impressions 03/04/2025 4:05 PM CDT IMPRESSION: [facility] will request the patient's previous outside studies in order to assess for stability. An addendum will be provided after reviewing the outside exams. DICTATION LOCATION: [facility] Narrative 03/04/2025 4:05 PM CDT BILATERAL FULL-FIELD [...] GIVEN SOURCE Domonique Mcleod Comment:ENDOCERVIX ADEQUACY: Domonique YouViewDuong Mcleod Comment:SATISFACTORY FOR SERGIO LUATION PAP INTERP Domonique YinDuong Mcleod Comment: Cytology Results: Negative for intraepithelial lesion or malignancy. Atrophic pattern; predominantly parabasal cells COMMENT (PAP TEST) Q uest AnnamariaDuong Mcleod Comment: This Pap test has been evaluated with the ThinPrep(R) Imaging System. FLUE CLEANER: Oli Mcleod Comment: MESHA BOWDEN(ASCP) CT Screening Location: [place] [address] Administration EM[place]wang [address] CLIA: [id number] Slide preparation performed at: [facility], [address] [place] [address], [address] CLIA: [id number] EXPLANATORY NOTE Que st Nimisha Mcleod Comment: [...] and current clinical information. Test Performed at: [facility] [place] [address] [address] EM[place] [phone] Kaye Hoskins Genital SWAB OF ENDOCERVIX / Unknown 03/02/2025 10:29 AM CDT 03/03/2025 7:06 PM CDT Josh Torres MD PATHOLOGY/CYTOLOGY ORD ERABLES Final Result [facility] [address] [phone] [place] [address] [address] [place] [phone] from Last 3 Months or Most Recently Relevant to Health Maintenance Insurance [facility] [id number] Care Teams Import Manager Relationship Specialty Start Date End Date Gregory Phillips DO [address] [facility] [address] [place] [address] PCP - General Internal Medicine 01/12/20
[2025-07-06 19:06] LABS: INR 1.0; Prothrombin Time 13.3 Seconds (11.1-14.7)
[2025-07-06 20:29] LABS: Vitamin B12 211.0 pg/mL (239-931)
== END 2025-07-06 15:08 | disposition home or self-care (01) ==
LOC: ANHGOSHLAB 15:08
PROVIDERS: PCP Internal Medicine; Visit Provider Internal Medicine
DX: G45.9 Transient cerebral ischemic attack, unspecified (principal); R20.2 Paresthesia of skin
CPT/HCPCS: 36415; 82607; 82746; 85610